=== PATIENT | male | born 1990 | race Two or more races ===

== ENCOUNTER 2024-06-01 06:12 | Emergency (ER) | payer SELFPAY ==
[~2024-06-01] VITALS: Ht 170.2 cm; Wt 60.0 kg
[2024-06-01 06:23] VITALS: BP 121/70; PULSE 78; RESP 16; TEMP 98.1; O2SAT 100
== END 2024-06-01 07:00 | disposition home or self-care (01) ==
LOC: EMS 06:13
DX: F10.129 Alcohol abuse with intoxication, unspecified (principal); V49.40XA Driver injured in collision with unspecified motor vehicles in traffic accident, initial encounter; Y93.89 Activity, other specified; Y92.410 Unspecified street and highway as the place of occurrence of the external cause; Y99.8 Other external cause status; Y90.6 Blood alcohol level of 120-199 mg/100 ml
CPT/HCPCS: 99283; Z7502